=== PATIENT | male | born 1965 | race Caucasian/White ===

== ENCOUNTER 2019-08-17 20:47 | Emergency (ER) | payer OTHER ==
[~2019-08-17] VITALS: Ht 170.2 cm; Wt 88.0 kg
[2019-08-17 20:53] VITALS: BP 145/79
--- NOTE | 2019-08-17 21:25 | NUR ---
54 Y/O MALE PRESENTS TO ED, C/O LOWER ABDOMINAL PAIN THAT RADIATES TO FLANK. PAIN IS 6/10 AT THIS TIME. PT STATES PAIN STARTED 4 DAYS AGO AND WORSENING TODAY. DENIES ANY DYSURIA. DENIES ANY N/V/D. BS ACTIVE X4 QUADRANTS. ABD SOFT AND NONTENDER. ERMD AWARE. WILL COTNINUE TO MONITOR.
--- NOTE | 2019-08-17 21:45 | NUR ---
PT TAKEN TO XRAY
[2019-08-17 22:32] VITALS: BP 145/79
--- NOTE | 2019-08-17 22:32 | NUR ---
Patient discharged with v/s stable. Written and verbal after care instructions given and explained. Patient alert, oriented and verbalized understanding of instructions. Ambulatory with steady gait. All questions addressed prior to discharge. ID band removed. Patient advised to follow up with PMD. Rx of MIRALAX, MINERAL OIL, MOTRIN given. Patient educated on indication of medication including possible reaction and side effects. Opportunity to ask questions provided and answered.
== END 2019-08-17 22:32 | disposition home or self-care (01) ==
LOC: MED 21:01 → EDSEX 21:01 → MED 22:32
DX: R10.30 Lower abdominal pain, unspecified (principal); R03.0 Elevated blood-pressure reading, without diagnosis of hypertension
CPT/HCPCS: 74022; 99283

== ENCOUNTER 2020-05-20 06:37 | Day surgery (SDC) | payer OTHER ==
[~2020-05-20] VITALS: Ht 170.2 cm; Wt 86.2 kg
[2020-05-20] MEDS ORDERED: MIDAZOLAM 2 MG/2 ML VIAL ONE ×2 (07:55)
[2020-05-20] MEDS ORDERED: diphenhydrAMINE 50 MG/ML VIAL ONE (07:55)
[2020-05-20] MEDS ORDERED: fentaNYL citrate 0.05 MG/ML VIAL ONE (07:55)
[2020-05-20] MEDS ORDERED: LIDOCAINE 2% 100 MG/5 ML UJET TP ONE ×2 (07:56→09:05)
[2020-05-20] MEDS ORDERED: fentaNYL citrate 0.05 MG/ML VIAL IVP ONE (09:05)
[2020-05-20] MEDS ORDERED: MIDAZOLAM 2 MG/2 ML VIAL IVP ONE (09:05)
[2020-05-20] MEDS ORDERED: SIMETHICONE 40 MG/0.6 ML ONE (10:33)
== END 2020-05-20 09:23 | disposition home or self-care (01) ==
LOC: MDS 06:37 → MFCC 06:38 → MDS 09:23
PROVIDERS: ATTEND Internal Medicine Gastroenterology
DX: Z12.11 Encounter for screening for malignant neoplasm of colon (principal); K31.7 Polyp of stomach and duodenum; K21.00 Gastro-esophageal reflux disease with esophagitis, without bleeding; K57.30 Diverticulosis of large intestine without perforation or abscess without bleeding; K29.70 Gastritis, unspecified, without bleeding; K29.80 Duodenitis without bleeding; Z79.899 Other long term (current) drug therapy
CPT/HCPCS: 43239; 45378; 88305; 88312; 88313; J2250; J3010; J7120; J1200